=== PATIENT | female | born 1995 | race Caucasian/White ===

== ENCOUNTER → 2023-07-15 08:50 | Outpatient (CLI) | payer BC, SELFPAY ==
--- NOTE | 2023-07-15 08:52 | DI.RAD.S_ITS ---
PROCEDURE: XR WRIST RT MIN 3V INDICATIONS: eval R wrist pain x 3 months, remote hx fracture TECHNIQUE: 4 views of the wrist were acquired. COMPARISON: None. FINDINGS: Bones: No fractures or dislocations. No suspicious bony lesions. Scaphoid view: Unremarkable Soft tissues: No suspicious soft tissue calcifications. IMPRESSION: No acute bony abnormality. Dictated by: Santi Carrasco M.D. on 07/15/2023 at 10:59 Approved by: Santi Carrasco M.D. on 07/15/2023 at 10:59
== END ==
PROVIDERS: PCP Registered Nurse Diabetes Educator; Referring Provider Registered Nurse Diabetes Educator; Visit Provider Registered Nurse Diabetes Educator
DX: M25.531 Pain in right wrist (principal)
CPT/HCPCS: 73110

== ENCOUNTER 2023-11-01 10:21 | Emergency (ER) | payer OTHER, BC, SELFPAY ==
--- NOTE | 2023-11-01 10:24 | DI.RAD.S_ITS ---
PROCEDURE: XR KNEE LT 3V INDICATIONS: Probable reduced patellar dislocation TECHNIQUE: 3 views of the knee were acquired. COMPARISON: None. FINDINGS: Bones: Suspected tiny avulsion or contusion fragments seen in the medial patella on sunrise view. No other displaced fracture. No dislocation. Soft tissues: Joint effusion. IMPRESSION: Possibly tiny avulsion or contusion fracture fragments on sunrise view at the patella. Joint effusion. If there is high concern for further derangement, consider MRI evaluation. Dictated by: Shyam Orr M.D. on 11/01/2023 at 11:29 Approved by: Shyam Orr M.D. on 11/01/2023 at 11:29
[2023-11-01 10:25] VITALS: BP 133/79; PULSE 70; RESP 14; TEMP 37.1; O2SAT 100; BMI 24.5
--- NOTE | 2023-11-01 10:29 | ED.LOWEXIN ---
HPI - Extremity Injury (Lower) General Chief Complaint: Extremity Injury, Lower Stated Complaint: dislocated L knee Time Seen by Provider: 11/01/23 10:23 Source: patient Mode of arrival: EMS Limitations: no limitations History of Present Illness HPI Narrative: Patient is a 28-year-old female who is here for evaluation of what was initially described as a left knee dislocation however upon further evaluation and discussion with the patient it was a patella dislocation. She was actually dislocated her patella several times in the past. Has had arthroscopic surgery because of this. She states she was helping an individual try to push their car out of the ditch. While she was putting pressure on her knee she felt her kneecap dislocate. She reduced it with the help of another individual prior to arrival. There is swelling of the knee. No other injuries from the event. Related Data Home Medications Medication Instructions Recorded Confirmed krill oil 500 mg capsule mg PO 12/19/20 07/15/23 lactobacillus combination no.8 PO 12/19/20 07/15/23 [Adult Probiotic] multivitamin (Daily Multi-Vitamin 1 tab PO DAILY 12/19/20 07/15/23 tablet) psyllium husk [Daily Fiber] PO 12/19/20 07/15/23 vitamin d PO 12/19/20 07/15/23 rizatriptan 5 mg tablet mg PO 07/15/23 07/15/23 Allergies Allergy/AdvReac Type Severity Reaction Status Date / Time No Known Drug Allergies Allergy Verified 11/01/23 10:27 Review of Systems Constitutional Constitutional: Reports system reviewed and no additional complaints, except as documented Musculoskeletal Musculoskeletal: Reports system reviewed and no additional complaints, except as documented Integumentary/Breasts Skin/Breast: Reports system reviewed and no additional complaints, except as documented Hematologic/Lymphatic On Anticoagulants: No Patient History Medical History Hand pain (~2015) Fractures (~2015) Chicken pox (~2003) Hypertension (~2017) Surgical History Anesthesia [place] teeth removed (~04/2017) History of knee surgery Family History Father Hypertension Social History (Reviewed 02/03/24 @ 10:31 by GRACE Farias Smoking Status: Never smoker Smoking Status: Never smoker alcohol intake frequency: holidays/special occasions only Substance Use Type: does not use Exam Initial Vital Signs Initial Vital Signs: Vital Signs Temperature 98.8 F 11/01/23 10:25 Pulse Rate 70 11/01/23 10:25 Respiratory Rate 14 11/01/23 10:25 Blood Pressure 133/79 11/01/23 10:25 Pulse Oximetry 100 11/01/23 10:25 Oxygen Delivery Method Room Air 11/01/23 10:25 HENMT Head: normal to inspection and normocephalic Cardio Pulses: dorsalis pedis present on the left Skin General: no rashes or lesions noted Neuro Sensory Exam: no sensory deficits noted Extrem Other: An effusion of the left knee. The patella is relocated. She was most comfortable with her knee in a semi flexed position. Procedures Orthopedic Splinting/Casting Injury #1: Side: left Lower Extremity Injury Location: knee Lower Extremity Immobilizer: knee immobilizer Post splinting neuro exam: no change Post splinting vascular exam: no change Placed by: Nursing Course Orders Ordered: ED Orders 11/01/23 10:24 XR knee LT 3V Stat Vital Signs Vital signs: Vital Signs - 8 hr 11/01/23 10:25 Temperature 98.8 F Pulse Rate 70 Respiratory Rate 14 Blood Pressure 133/79 Pulse Oximetry 100 Oxygen Delivery Method Room Air [facility] - Extremity Injury (Lower) Imaging Data Extremity x-ray #1: Radiologist's Impression: PROCEDURE: XR KNEE LT 3V INDICATIONS: Probable reduced patellar dislocation TECHNIQUE: 3 views of the knee were acquired. COMPARISON: None. FINDINGS: Bones: Suspected tiny avulsion or contusion fragments seen in the medial patella on sunrise view. No other displaced fracture. No dislocation. Soft tissues: Joint effusion. IMPRESSION: Possibly tiny avulsion or contusion fracture fragments on sunrise view at the patella. Joint effusion. If there is high concern for further derangement, consider MRI evaluation. [facility] Narrative Medical decision making narrative: The knee x-ray today shows potentially an avulsion fracture of the patella but no other acute fractures. It is reduced. She was placed in a knee immobilizer. She has had this happened to her in the past. Recommend that she follow-up with Orthopedic surgery for follow-up. She was given return precautions. She expressed understanding and agreement with plan. Discharge Plan Departure Patient Disposition: Home Clinical Impression: Closed dislocation of patella Instructions: DI for Patellar Dislocation Activity Restrictions/Additional Instructions: The knee immobilizer is for your comfort. You can take it off when you shower and also to sleep at night however recommend that you do keep it on when you were up and walking. You can walk on your left leg as tolerated. Also recommend that you use ice to your left knee. You are going to need follow-up with orthopedic surgery. You can contact them with the number provided below. Return to the emergency department for new symptoms. Prescriptions: No Action multivitamin [Daily Multi-Vitamin] Tablet 1 tab PO DAILY lactobacillus combination no.8 PO vitamin d PO psyllium husk PO krill oil 500 mg capsule PO rizatriptan 5 mg tablet PO Referrals: Harsh Medeiros ARNP [Primary Care Provider] - Kim Tracey MD [Physician] - Stand Alone Forms: Patient Portal/API
[2023-11-01 12:08] VITALS: BP 135/83; PULSE 69; RESP 16; O2SAT 100
== END 2023-11-01 12:08 | disposition home or self-care (01) ==
PROVIDERS: Emergency Provider Emergency Medicine; PCP Registered Nurse Diabetes Educator
DX: S83.005A Unspecified dislocation of left patella, initial encounter (principal); X50.9XXA Other and unspecified overexertion or strenuous movements or postures, initial encounter; Y93.89 Activity, other specified
CPT/HCPCS: 29505; 73562; 99282; 99283

== ENCOUNTER → 2023-11-06 19:43 | Outpatient (CLI) | payer OTHER, BC, SELFPAY ==
--- NOTE | 2023-11-06 | DI.MRI.S_ITS ---
PROCEDURE: MR KNEE LT WO CON INDICATIONS: DISLOCATED PATELLA TECHNIQUE: Noncontrast sagittal PD fast spin echo and T2 fast spin echo with fat saturation, sagittal 3-D FLASH with fat saturation; coronal T1 spin echo and PD fast spin echo with fat saturation, and axial PD fast spin echo with fat saturation through the knee. COMPARISON: None. FINDINGS: Image quality: Excellent. Menisci: The medial and lateral menisci demonstrate normal morphology and internal signal. The meniscal root ligaments appear intact. Cruciate ligaments: The anterior cruciate ligament is thickened with intrasubstance T2 hyperintense signal. The PCL is intact. Medial structures: The medial collateral ligament appears mildly thickened with surrounding soft tissue edema. Visualized portions of the pes anserinus tendons appear normal. No abnormal bursal fluid. Lateral structures: The lateral collateral ligament, long and short heads of the biceps femoris tendon appear intact. The popliteus tendon appears normal. Iliotibial band appears normal. Anterior structures: Distal quadriceps tendinosis at its superior patellar insertion is seen. Patellar tendon is intact. High-grade partial-thickness tear versus rupture of the medial patellofemoral ligament at its patellar insertion is seen. Lateral subluxation of patella is noted. Edema is noted within the infrapatellar fat pad. Bones and cartilage: There is marrow edema involving lateral periphery of lateral femoral condyle and medial portion of patella with cortical disruption involving medial cortex of patella suggestive of bony contusion/nondisplaced fracture. No other fracture or dislocation. Articulating cartilage is normal in thickness. Joint space: There is moderate to large knee joint fluid. Diffuse soft tissue swelling surrounding left knee is noted. No Boateng's cyst. Normal appearing synovial plicae are incidentally noted. IMPRESSION: 1. Finding is consistent with reduced lateral patellar dislocation with bony contusion involving lateral periphery of lateral femoral condyle and medial portion of patella, a subtle nondisplaced fracture involving medial portion of patella cannot be excluded. No other area of abnormal marrow signal. Lateral subluxation of the patella. High-grade partial to full-thickness rupture involving medial patellofemoral ligament near its patellar insertion. 2. Thickened ACL suggestive of low-grade ACL sprain. The PCL is intact. 3. Low-grade MCL sprain near its femoral insertion. 4. Distal quadriceps tendinosis. 5. No focal meniscal tear. 6. Moderate to large joint effusion and diffuse left knee soft tissue swelling. No gross intra-articular loose bodies. Dictated by: Jordi Jacobson M.D. on 11/07/2023 at 9:44 Approved by: Jordi Jacobson M.D. on 11/07/2023 at 10:21
== END ==
PROVIDERS: PCP Registered Nurse Diabetes Educator; Referring Provider Physician Assistant Medical; Visit Provider Physician Assistant Medical
DX: S83.012A Lateral subluxation of left patella, initial encounter (principal); S76.112A Strain of left quadriceps muscle, fascia and tendon, initial encounter; S83.412A Sprain of medial collateral ligament of left knee, initial encounter; S83.005S Unspecified dislocation of left patella, sequela; M25.462 Effusion, left knee
CPT/HCPCS: 73721